=== PATIENT | female | born 1995 | race American Indian/Alaskan Native ===

== ENCOUNTER 2025-06-18 14:55 | Outpatient (CLI) | payer OTHER | END 2025-06-18 14:56 | disposition home or self-care (01) | LOC: SCSULT 14:55 | PROVIDERS: ATTEND Student in an Organized Health Care Education/Training Program | DX: D25.9 Leiomyoma of uterus, unspecified (principal); R19.00 Intra-abdominal and pelvic swelling, mass and lump, unspecified site | CPT/HCPCS: 76856 ==